=== PATIENT | female | born 1955 | race African-American/Black ===

== ENCOUNTER 2023-10-21 11:35 | Outpatient (CLI) | payer MEDICARE, OTHER | END 2023-10-21 11:36 | disposition home or self-care (01) | LOC: CSHCT 11:35 | PROVIDERS: ATTEND Orthopaedic Surgery | DX: Z01.818 Encounter for other preprocedural examination (principal); M17.11 Unilateral primary osteoarthritis, right knee ==

== ENCOUNTER 2023-12-03 10:47 | Outpatient (CLI) | payer MEDICARE, OTHER | END 2023-12-03 10:48 | disposition home or self-care (01) | LOC: CSHMAMMO 10:47 | PROVIDERS: ATTEND Family Medicine | DX: Z12.31 Encounter for screening mammogram for malignant neoplasm of breast (principal); M85.852 Other specified disorders of bone density and structure, left thigh; M81.0 Age-related osteoporosis without current pathological fracture; Z80.3 Family history of malignant neoplasm of breast | CPT/HCPCS: 77063; 77067; 77080 ==